=== PATIENT | male | born 1985 | race Caucasian/White ===

== ENCOUNTER 2016-10-15 18:12 | Emergency (ER) | payer OTHER ==
[~2016-10-15] VITALS: Ht 177.8 cm; Wt 97.3 kg
[2016-10-15 19:27] LABS: HEMATOCRIT 44.1 % (38.0-50.0); MCH 29.4 PG (29.0-34.0); MCHC 33.3 G/DL (30.0-36.0); MCV 88.2 FL (86-99); MEAN PLAT.VOLUME 9.3 uM^3 (9.0-12.4); PLATELET COUNT 306 K/uL (156-360); RBC DIS.WIDTH-CV 11.3 % (11.8-14.6); WHITE BLOOD COUNT 11.1 K/uL (4.1-10.2)
[2016-10-15 19:35] LABS: CHLORIDE 106 mEq/L (99-109); POTASSIUM 4.1 mEq/L (3.7-5.4); SODIUM 139 mEq/L (136-147)
[2016-10-15 19:37] LABS: GLUCOSE 93 mg/dL (70-99)
[2016-10-15 19:38] LABS: ANION GAP 9 MEQ/L (2-14)
[2016-10-15 19:41] LABS: ALKALINE PHOSPHATASE 60 IU/L (3-129); GFR ESTIMATE (CALCULATED) > 59 mL/min/
[2016-10-15 19:42] LABS: UREA NITROGEN (BUN) 14 mg/dL (9-23)
[2016-10-15 20:00] VITALS: BP 148/87
[2016-10-16 11:16] LABS: AHBS INDEX > 1000.00; HIV-1/2 AB/AG COMBO Nonreactive; HPCA INDEX 0.08
[2016-10-16 12:53] LABS: HEPATITIS B SURFACE ANTIBODY REACTIVE
== END 2016-10-15 20:00 | disposition home or self-care (01) ==
LOC: EME 18:12
PROVIDERS: Nurse Practitioner Family
DX: Z77.21 Contact with and (suspected) exposure to potentially hazardous body fluids (principal); Y99.0 Civilian activity done for income or pay; Y92.149 Unspecified place in prison as the place of occurrence of the external cause
CPT/HCPCS: 80053; 85027; 86703; 86706; 86803; 99281; 99282